=== PATIENT | female | born 1990 | race Caucasian/White ===

== ENCOUNTER 2021-01-15 07:25 | Inpatient (IN) ==
[2021-01-15] MEDS ORDERED: OXYTOCIN 30 UNITS/500 ML BAG IV PRN ×3 (07:31→17:34)
--- NOTE | 2021-01-15 07:48 | History & Physical Report ---
Date of Service January 15, 2021 Assessment & Plan (1) IUGR (intrauterine growth restriction) affecting care of mother: Plan: plan admit, check covid screen. plan pitocin induction, arom when indicated. anticipate . fetus category one. Admission and Anticipated Discharge Date Admission Date: January 15, 2021 History of Present Illness Chief Complaint: induction Primary Care Provider: Jolene Brown DO Patient is a 30 yowf with iup at 39 weeks for induction for iugr. Patient has been well. This was diagnosed at her 39 week ultrasound with ac in 3% and efw 6%. Testing reassuring. no contractions/lof/vb. +fm.. also complicated by diet controlled gdm. B Labs: Hemoglobin 11.9 g/dL (11.7-15.5) 11/06/20 Hematocrit 35.0 % (35.0-45.0) 11/06/20 Mean Corpuscular Volume 89.7 fL (80.0-100.0) 06/17/20 Platelet Count 455 Thousand/uL (140-400) H 06/17/20 Rubella IgG Antibody 1.36 Index 06/17/20 HIV (1&2) Ab and P24 Ag, 4th Gener NON-REACTIVE (NON-REACTIVE) 06/17/20 Glucose 1 Hour 50 gm Load 141 mg/dL (<135) H 08/12/20 Hepb neg toxo titers negative. OB Optional Labs: Chlamydia trachomatis RNA NOT DETECTED (NOT DETECTED) 06/17/20 Neisseria gonorrhoeae RNA NOT DETECTED (NOT DETECTED) 06/17/20 Labs Reviewed: failed 16 week 2 hr gtt. declined genetics, cf/sma. Allergies Allergy/AdvReac Type Severity Reaction Status Date / Time No Known Allergies Allergy Verified 01/14/21 13:19 Home Medications Medication Instructions Recorded Confirmed Type prenat.vits,benjamin,[id number] 1 tab PO DAILY #90 tab 07/02/20 01/14/21 Rx acetone (urine) test (Ketone Urine #50 ea 09/08/20 01/14/21 Rx Test) blood sugar diagnostic ([employer] Grid[employer] #150 ea 09/08/20 01/14/21 Rx Verio test strips) blood-glucose meter (OneTouch #1 ea 09/08/20 01/14/21 Rx Verio Reflect Meter) lancets 33 gauge (Kristin Rubio #150 ea 09/08/20 01/14/21 Rx Lancets) Patient History Medical History Small for dates affecting management of mother Surgical History S/P tonsillectomy S/P wisdom tooth extraction Family History Mother Diabetes Hypertension Father Hypertension Lung cancer Grandmother (Maternal) Myocardial infarction Denies family history of Ovarian cancer Prostate cancer Breast cancer Colorectal cancer Social History Smoking Status: Former smoker Tobacco Type: Cigarettes Age Started Using Tobacco: 15; Age Quit Using Tobacco: 26; Second Hand Exposure: No; Hx Alcohol Use: No Hx Substance Use: No Preferred Language: Sammarinese Visual Impairment: No Limitations Hearing Ability: Normal Claim Clerk Required: No Beliefs That Will Affect Care: None marital status: marital status details: Seth (30) [phone] Current Living Situation: Spouse Current Living Situation Comment: lives with spouse, son, 1 dog, 1 cat, pt changes litter with gloves. 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[facility] [place] How many Children do You have: 1 Feels Safe at Home: Yes Childhood Exposure to Second-Hand Smoke: Yes caffeine: Yes (1 cup of coffee daily ) during the past year weight has: remained stable Dental Care, Regularly: No Physical Activity Frequency: Daily Physical Activity Frequency Comment: physical activity at work and around the house Seatbelt Use: always Sunscreen Use: Yes OB History g1--12/20, , 41 weeks, 7#11oz ENROLLED NURSE History noncontributory Physical Exam Constitutional: WD/WN, vitals as above Gastrointestinal (Abdomen): soft, gravid, nt Psychiatric: A+Ox3, euthymic affect Genitourinary: gentle tug on the moura bulb and removed cx--difficult exam-/50/-2/soft/mid toco--leticia efm--130s with mod variability, accels to 160s, no decels Results & Data ([facility]) Vital Signs (Past 12 Hours) Vital Signs Pulse BP 01/15/21 07:40 50 L 137/96 Coding Level of Care Code None Diagnoses IUGR (intrauterine growth restriction) affecting care of mother O36.5990
[2021-01-15] MEDS: LACTATED RINGER'S 1,000 ML IV PRN ×2 (08:59→13:46)
[2021-01-15 09:19] LABS: Hematocrit (blood only) 38.2 % (37-47); Hemoglobin 13.2 g/dL (12.0-16.0); Mean Corpuscular Hgb Conc 34.6 g/dL (32-36); Mean Corpuscular Volume 86.8 fL (80-100); Mean Platelet Volume 11.9 fL (7.4-10.4); Platelet Count 252 K/uL (130-400); RDW Coefficient of Variation 13.7 % (11.5-14.5)
[2021-01-15] MEDS ORDERED: SODIUM CHLORIDE 0.9% INJ 10 ML VIAL ONE (13:20)
[2021-01-15] MEDS ORDERED: fentaNYL citrate 100 MCG/2 ML VIAL ONE (13:20)
[2021-01-15] MEDS ORDERED: BUPIVACAINE 0.25% 30 ML VIAL ONE (13:20)
[2021-01-15] MEDS ORDERED: ePHEDrine sulfate 50 MG/ML AMP ONE (13:20)
[2021-01-15] MEDS ORDERED: fentaNYL 2MCG/ML ROPIVACAINE 1.25MG/ML 100 ML BAG EPI ONE (13:21)
--- NOTE | 2021-01-15 13:24 | Labor Progress Brief Note ---
Date of Service January 15, 2021 Subjective contractions getting uncomfortable Assessment & Plan (1) IUGR (intrauterine growth restriction) affecting care of mother: (2) Gestational diabetes: Plan: sugars good. likely need arom at this point. Discussed will get epidural and then arom. fetus category one. Admission and Anticipated Discharge Date Admission Date: January 15, 2021 Physical Exam Physical Exam: cx--4-5/75/-2 pit at 13 toco--q2-4min efm--120s accels to 160s, no decels Results & Data ([facility]) Vital Signs (Past 12 Hours) Vital Signs Temp Pulse Resp BP 01/15/21 13:05 48 L 140/75 01/15/21 12:07 46 L 159/90 H 01/15/21 10:51 41 L 151/84 H 01/15/21 09:16 50 L 164/92 H 01/15/21 09:14 46 L 173/82 H 01/15/21 08:21 36.7 C 20 01/15/21 07:40 36.7 C 50 L 20 137/96 Coding Level of Care Code None Diagnoses IUGR (intrauterine growth restriction) affecting care of mother O36.5990 Gestational diabetes O24.419
[2021-01-15] MEDS ORDERED: fentaNYL 2MCG/ML ROPIVACAINE 1.25MG/ML 100 ML BAG EPI PRN (13:37)
[2021-01-15] MEDS ORDERED: NALOXONE HCL 0.4 MG/1 ML VIAL/CARP IV PRN (13:37)
[2021-01-15] MEDS ORDERED: NALBUPHINE HCL INJ 10 MG/ML AMP IV PRN (13:37)
[2021-01-15] MEDS ORDERED: ONDANSETRON INJ 2 MG/ML 2 ML VIAL IV PRN (13:37)
[2021-01-15] MEDS ORDERED: NALOXONE HCL 1 MG in SODIUM CHLORIDE 0.9% 1000ML 1,000 ML IV PRN (13:37)
[2021-01-15] MEDS ORDERED: diphenhydrAMINE 50 MG/ML VIAL IV PRN (13:37)
[2021-01-15] MEDS ORDERED: ePHEDrine sulfate 50 MG/ML AMP IV PRN (13:37)
--- NOTE | 2021-01-15 13:37 | Anesthesiology Consultation ---
Date of Service January 15, 2021 Assessment & Plan ASA ASA2 Proposed Anesthesia Anesthesia Type: Labor Epidural Risk / Benefits Reviewed With: PT / POA / Parent / Guardian, Accepts Plan and Informed Consent Obtained History Height/Weight Height: 5 ft 5 in Weight: 99.798 kg Allergies Allergy/AdvReac Type Severity Reaction Status Date / Time No Known Allergies Allergy Verified 01/14/21 13:19 Medications Home Medications Medication Instructions Recorded Confirmed Last Taken prenat.vits,benjamin,jbz-[id number] 1 tab PO DAILY #90 tab 07/02/20 01/15/21 01/14/21 20:00 acetone (urine) test (Ketone Urine #50 ea 09/08/20 01/14/21 Unknown Test) blood sugar diagnostic (OneTouch #150 ea 09/08/20 01/14/21 Unknown Verio test strips) blood-glucose meter (AffinnovaTouch #1 ea 09/08/20 01/14/21 Unknown Verio Reflect Meter) lancets 33 gauge (OneTouch Delica #150 ea 09/08/20 01/14/21 Unknown Lancets) Active Medications Generic Name Dose Route Start Last Admin Trade Name Freq PRN Reason Stop Dose Admin Oxytocin 30 units in 500 mls @ 17 mls/hr 01/15/21 07:31 01/15/21 15:13 Pitocin IV 01/17/21 07:30 1.02 units/hr .Q24H PRN 17 mls/hr Labor Induction/Augmentation Titration Protocol 1.02 UNITS/HR Lactated Ringer's 1,000 mls @ 125 mls/hr 01/15/21 07:31 01/15/21 14:14 Lr IV 01/17/21 07:30 125 mls/hr .Q8H PRN Infusion L&D Protocol Protocol Past Medical History Medical History Small for dates affecting management of mother Exercise / Class Metabolic Activity II 4-5 Yardwork/Stairs/Walk up hill Past Family History Family History Mother Diabetes Hypertension Father Hypertension Lung cancer Grandmother (Maternal) Myocardial infarction Denies family history of Ovarian cancer Prostate cancer Breast cancer Colorectal cancer Past Surgical History Surgical History S/P tonsillectomy S/P wisdom tooth extraction Past Anesthesia History No Hx of Anesthesia Complications and No Family Hx of Anesthesia Complications History of PONV No Hx of PONV and No Hx of Motion Sickness Social History Smoking Status: Former smoker Hx Alcohol Use: No Hx Substance Use: No substance use type: does not use Review of Systems denies fever/cough/ colds/ chest pain/ SOB/ GISSEL denies GISSEL Physical Exam Vital Signs Last Vital Signs Temp 36.7 C 01/15/21 16:25 Pulse 43 L 01/15/21 16:50 Resp 20 01/15/21 16:25 BP 151/75 H 01/15/21 16:40 Pulse Ox 98 01/15/21 16:50 ENMT Mouth: no TMJ abnormality and no dentition abnormality Thyromental Distance: > or= 3.5 Finger Breadths Mallampati Class: II Neck neck extension not limited Respiratory normal respiratory effort; no respiratory distress Auscultation: lungs clear to auscultation bilaterally Cardiovascular Rate/Rhythm: regular rate and regular rhythm Neurologic moves all extremities Psychiatric Orientation: alert and oriented x 3 Testing Laboratory Results 01/15/21 08:34 01/15/21 01/15/21 01/15/21 15:18 13:12 09:56 POC Glucose 79 65 L* 66 L*
--- NOTE | 2021-01-15 15:19 | Labor Progress Brief Note ---
Date of Service January 15, 2021 Subjective comfortable with epidual Assessment & Plan (1) IUGR (intrauterine growth restriction) affecting care of mother: Plan: continue current management. fetus category one. anticipate . Admission and Anticipated Discharge Date Admission Date: January 15, 2021 Physical Exam Physical Exam: cx--5/80/-2 arom--clear toco--q2-4min, pit at 17 efm--120s wtih mod variability, accels to 160s, no decels. Results & Data ([facility] [place]) Vital Signs (Past 12 Hours) Vital Signs Temp Pulse Resp BP Pulse Ox 01/15/21 15:15 58 L 98 01/15/21 15:10 42 L 128/72 98 01/15/21 15:07 41 L 126/75 01/15/21 15:05 46 L 98 01/15/21 15:00 49 L 98 01/15/21 14:55 56 L 98 01/15/21 14:52 51 L 93 01/15/21 14:50 49 L 99 01/15/21 14:45 60 98 01/15/21 14:42 58 L 92 01/15/21 14:40 47 L 128/66 100 01/15/21 14:35 54 L 98 01/15/21 14:30 56 L 98 01/15/21 14:25 62 97 01/15/21 14:22 53 L 127/67 93 01/15/21 14:20 58 L 99 01/15/21 14:15 57 L 146/94 H 100 01/15/21 14:14 56 L 92 01/15/21 14:13 54 L 144/92 H 01/15/21 14:11 48 L 159/85 H 01/15/21 14:10 52 L 98 01/15/21 14:09 44 L 145/83 H 01/15/21 14:07 49 L 153/89 H 01/15/21 14:05 64 97 01/15/21 14:00 55 L 99 01/15/21 13:55 49 L 98 01/15/21 13:50 59 L 98 01/15/21 13:05 48 L 140/75 01/15/21 12:07 46 L 159/90 H 01/15/21 10:51 41 L 151/84 H 01/15/21 09:16 50 L 164/92 H 01/15/21 09:14 46 L 173/82 H 01/15/21 08:21 36.7 C 20 01/15/21 07:40 36.7 C 50 L 20 137/96 Coding Level of Care Code None Diagnoses IUGR (intrauterine growth restriction) affecting care of mother O36.5990
--- NOTE | 2021-01-15 17:30 | Delivery Summary ---
Vaginal Delivery Summary Date of Service January 15, 2021 Pre-operative Diagnosis: at 39 weeks diet controlled gdm iugr Post-operative Diagnosis: same Procedure: moura for cervical ripening pitocin induction epidural arom EBL: 300cc Anesthesia: epidural Procedure: Patient admitted for induction at 39 weeks for iugr. Had a successful moura bulb removed morning of admission. pit induction. arom after epidural at 5cm. baseline in 110-120s. The patient was found to be c/c/+2 station. The patient pushed for one contraction to deliver a viable female infant in freya position. The nose and mouth were bulb suctioned on the perineum and the rest of the was then delivered through a loose nuchal cord without difficulty. The baby was vigorous. The nose and mouth were again bulb suctioned and the was placed in the maternal abdomen for drying and attention. Cord was clamped and cut at one minute of life. Cord blood and segment obtained. Placenta delivered spontaneous, intact with a three vessel cord. Cervix/sulci/rectum/perineum were intact. Hemostasis obtained with dilute pitocin and fundal massage. Apgars were 9/9. Mother and baby doing well at the end of the delivery. Vaginal Delivery Summary [facility] Vaginal Delivery Charge Delivery Type Details: [facility]
[2021-01-15] MEDS ORDERED: SUPERCREAM 0.870% 15 GM JAR EXT PRN (17:34)
[2021-01-15] MEDS ORDERED: oxyCODONE/ACETAMINOPHEN 5mg/325mg TAB PO PRN (17:34)
[2021-01-15] MEDS ORDERED: DIPHTHERIA/TETANUS/PERTUSSIS 0.5 ML SYR/VIAL IM ONE (17:34)
[2021-01-15] MEDS ORDERED: bisacodyL 10 MG SUPP PR PRN (17:34)
[2021-01-15] MEDS ORDERED: HYDROCORTISONE ACETATE 25 MG SUPP PR PRN (17:34)
[2021-01-15] MEDS ORDERED: ACETAMINOPHEN 325 MG TAB PO PRN (17:34)
[2021-01-15] MEDS ORDERED: BENZOCAINE 20% AER SPR 82.5 GM CAN EXT PRN (17:34)
--- NOTE | 2021-01-15 18:31 | Anesthesiology Progress Note ---
Date of Service January 15, 2021 Anesthesia Post Procedure Vital Signs Vital Signs: Temp Pulse Resp BP Pulse Ox 01/15/21 18:23 57 L 170/91 H 01/15/21 18:10 40 L 157/77 H 01/15/21 17:38 54 L 147/64 H 01/15/21 17:22 59 L 172/81 H 01/15/21 17:15 87 100 01/15/21 17:13 74 92 01/15/21 17:10 61 178/105 H 99 01/15/21 17:05 50 L 98 01/15/21 17:00 46 L 99 01/15/21 16:55 46 L 156/85 H 99 01/15/21 16:50 43 L 98 01/15/21 16:45 44 L 100 01/15/21 16:40 46 L 151/75 H 97 01/15/21 16:35 43 L 99 01/15/21 16:34 50 L 94 01/15/21 16:30 53 L 99 01/15/21 16:25 36.7 C 46 L 20 146/78 H 100 01/15/21 16:24 43 L 134/83 01/15/21 16:20 49 L 99 01/15/21 16:15 49 L 99 01/15/21 16:10 43 L 99 01/15/21 16:09 43 L 135/82 01/15/21 16:05 41 L 98 01/15/21 16:00 42 L 98 01/15/21 15:55 42 L 150/89 H 98 01/15/21 15:50 44 L 98 01/15/21 15:45 42 L 98 01/15/21 15:40 42 L 135/82 98 01/15/21 15:35 42 L 98 01/15/21 15:30 41 L 98 01/15/21 15:25 41 L 141/80 H 98 01/15/21 15:20 49 L 98 01/15/21 15:15 58 L 98 01/15/21 15:10 42 L 128/72 98 01/15/21 15:07 41 L 126/75 01/15/21 15:05 46 L 98 01/15/21 15:00 49 L 98 01/15/21 14:55 56 L 98 01/15/21 14:52 51 L 93 01/15/21 14:50 49 L 99 01/15/21 14:45 60 98 01/15/21 14:42 58 L 92 01/15/21 14:40 47 L 128/66 100 01/15/21 14:35 54 L 98 01/15/21 14:30 56 L 98 01/15/21 14:25 62 97 01/15/21 14:22 53 L 127/67 93 01/15/21 14:20 58 L 99 01/15/21 14:15 57 L 146/94 H 100 01/15/21 14:14 56 L 92 01/15/21 14:13 54 L 144/92 H 01/15/21 14:11 48 L 159/85 H 01/15/21 14:10 52 L 98 01/15/21 14:09 44 L 145/83 H 01/15/21 14:07 49 L 153/89 H 01/15/21 14:05 64 97 01/15/21 14:00 55 L 99 01/15/21 13:55 49 L 98 01/15/21 13:50 59 L 98 01/15/21 13:05 48 L 140/75 01/15/21 12:17 36.4 C L 20 01/15/21 12:07 46 L 159/90 H 01/15/21 10:51 41 L 151/84 H 01/15/21 09:16 50 L 164/92 H 01/15/21 09:14 46 L 173/82 H 01/15/21 08:21 36.7 C 20 01/15/21 07:40 36.7 C 50 L 20 137/96 Transfer of Care Handoff Completed per policy Notes Mental Status: alert / awake / arousable and participated in evaluation Patient Amnestic to Procedure: Yes Nausea / Vomiting: adequately controlled Pain: adequately controlled Airway Patency, RR, SpO2: stable & adequate BP & HR: stable & adequate Hydration State: stable & adequate Anesthetic Complications: no major complications apparent and Pt Satisfied with anesthetic care
[2021-01-15] MEDS: DOCUSATE SODIUM 100 MG CAP PO SCH (20:22)
[2021-01-15] MEDS: IBUPROFEN 600 MG TAB PO PRN (20:22)
[2021-01-16] MEDS: IBUPROFEN 600 MG TAB PO PRN ×2 (04:41→15:57)
[2021-01-16 06:16] LABS: Hematocrit (blood only) 33.7 % (37-47); Hemoglobin 11.4 g/dL (12.0-16.0)
--- NOTE | 2021-01-16 07:11 | Obstetrical Progress Note ---
Date of Service <Mc Gardiner MD - Last Filed: 01/16/21 07:49> January 16, 2021 Assessment & Plan <Mc Gardiner MD - Last Filed: 01/16/21 07:49> (1) Encounter for care and examination after delivery: PPD1: stable; routine management * voiding, ambulating w/o difficulty * pain controlled with analgesia * with pump * assess readiness for d/c in PM, pending peds ok <Jeri Ortega MD, FACOG - Last Filed: 01/16/21 07:50> (1) Encounter for care and examination after delivery: Subjective <Mc Gardiner MD - Last Filed: 01/16/21 07:49> Christi is a 30 y/o female who is now PPD 1 following spontaneous vaginal delivery at 39 weeks. Reports feeling well overall this morning. Minimal pain well managed on analgesics. Voiding +. Tolerating meals well and able to ambulate some. + passing gas but no bowel movements. Some improvement with lochia this morning. (pump). Review of Systems Denies fever, chills, sweats Denies shortness of breath, difficulty breathing, chest pain, palpitations, chest pressure. Denies breast pain. Denies dysuria. Denies headache or changes in vision Physical Exam <Mc Gardiner MD - Last Filed: 01/16/21 07:49> General: Alert, oriented. No acute distress. Cardiac: Regular rate and rhythm, no murmurs/rubs/gallops. Respiratory: Clear to auscultation bilaterally a/p, no wheezes/rales/rhonchi. No increased work of breathing. Symmetrical chest rise. No respiratory distress. Abdomen: Soft, nontender, nondistended. Bowel sounds present. Uterus: Uterine fundus firm, palpable 1 cm below umbilicus. Lower Extremities: No lower extremity edema or swelling. No deep calf pain. Marcus's negative bilaterally. Results & Data ([facility]) <Mc Gardiner MD - Last Filed: 01/16/21 07:49> Vital Signs (Past 12 Hours) Vital Signs Temp Pulse Pulse Resp BP BP Pulse Ox 01/16/21 04:10 36.8 C 62 18 129/80 96 01/15/21 23:35 36.9 C 51 L 16 115/74 01/15/21 20:00 36.9 C 62 18 136/91 97 01/15/21 19:26 36.8 C 43 L 18 146/79 H <Jeri Ortega MD, FACOG - Last Filed: 01/16/21 07:50> Co-Signing Physician Notes Resident Physician Supervision Note: I interviewed and examined the patient. Discussed with Dr. Car and agree with findings and plan as documented in the note. Any exceptions or clarifications are listed here: Doing well. Routine care. Documented By: Jeri Ortega MD, FACOG Resident Activity Tracking <Mc Gardiner MD - Last Filed: 01/16/21 07:49> Resident Involvement: Resident Care Provided Care Provided: OB Delivery
[2021-01-16] MEDS: PRENATAL VITAMIN 1 TAB PO SCH (08:23)
[2021-01-16] MEDS: DOCUSATE SODIUM 100 MG CAP PO SCH ×2 (08:23→20:08)
[2021-01-16 13:52] LABS: Hematocrit (blood only) 35.4 % (37-47); Hemoglobin 12.2 g/dL (12.0-16.0); Mean Corpuscular Hgb Conc 34.5 g/dL (32-36); Mean Platelet Volume 11.2 fL (7.4-10.4); Platelet Count 218 K/uL (130-400); RDW Coefficient of Variation 13.8 % (11.5-14.5); RDW Standard Deviation 42.9 fL (36.4-46.3); Red Blood Count 4.07 M/uL (4.2-5.4); White Blood Count 12.07 K/uL (4.8-10.8)
[2021-01-16 14:12] LABS: Albumin Level 2.2 gm/dl (3.4-5.0); BUN Creatinine Ratio 13.9 (10-20); Calcium 9.1 mg/dl (8.5-10.1); Creatinine Clr Calc Pharmacy 101.3 ml/min; Est GFR (African American) 93.2 ml/min; Est GFR (Non-African American) 80.4 ml/min; Potassium 4.4 mmol/L (3.5-5.1)
[2021-01-16 14:15] LABS: Albumin Globulin Ratio 0.6 (0.9-2); Bilirubin,Total 0.1 mg/dl (0.2-1); Globulin 3.7 gm/dl (2.5-4.0); Total Protein 5.9 gm/dl (6.4-8.2)
[2021-01-16] MEDS: LABETALOL HCL 100 MG TAB PO SCH ×2 (17:01→21:27)
[2021-01-16] MEDS ORDERED: bisacodyL 5 MG TABEC PO SCH (20:00)
[2021-01-16] MEDS ORDERED: LABETALOL HCL 100 MG TAB PO SCH (21:00)
--- NOTE | 2021-01-17 05:15 | Obstetrical Progress Note ---
Date of Service January 17, 2021 Assessment & Plan (1) Encounter for supervision of normal in multigravida, antepartum: PPD#2 doing well. One dose of labatelol 100mg was given yesterday afternoon for BPs 150/100, immediate response and overnight BPs have been wnl. Preeclampsia labs were normal. Patient had something similar occur after prior delivery, and was discharged home on a blood pressure med - she does not remember which, and records not available. When she went home on that med, BP bottomed out and she hopes she can avoid that situation again. Will plan, as long as BPs look ok this am without the AM labetalol dose, to send home and then have pt come to office later this week for BP check. (2) Encounter for care and examination after delivery: Subjective Ambulation: ambulating normally Voiding: no voiding problems Diet Tolerance:: regular diet Lochia:: Moderate Review of Systems All systems reviewed & are unremarkable except as noted in HPI & below Physical Exam Constitutional WD/WN, vitals as above no acute distress Respiratory normal respiratory effort Cardiovascular Rate/Rhythm: regular rate and regular rhythm Gastrointestinal (Abdomen) Inspection/Auscultation: abdomen normal to inspection; abdomen not distended Percussion/Palpation: abdomen soft Genitourinary OB Exam Abdomen: + fundal height Fundus: + firm; not tender Results & Data ([facility]) Vital Signs (Past 12 Hours) Vital Signs Temp Pulse Resp BP Pulse Ox 01/16/21 23:35 36.7 C 71 18 126/79 97 01/16/21 20:05 36.5 C 56 L 18 123/72 97 01/16/21 18:55 130/88 01/16/21 18:00 138/89
[2021-01-17] MEDS: IBUPROFEN 600 MG TAB PO PRN (05:54)
[2021-01-17] MEDS: DOCUSATE SODIUM 100 MG CAP PO SCH (08:10)
[2021-01-17] MEDS: PRENATAL VITAMIN 1 TAB PO SCH (08:10)
== END 2021-01-17 11:30 | disposition home or self-care (01) | DRG 807 ==
LOC: 4S1 07:25 → 4S2 19:58